=== PATIENT | male | born 1945 | race Hispanic/Latino ===

== ENCOUNTER 2018-05-27 12:33 | Outpatient (CLI) | payer MEDICARE, BC ==
[2018-05-27 13:27] LABS: #Basophils 0.1 thou/uL (0.0-0.2); #Eosinphils 0.1 thou/uL (0.0-0.7); #Lymphocytes 1.8 thou/uL (1.20-3.40); #Monocytes 0.7 thou/uL (0.11-0.59); #Neutrophils 7.2 thou/uL (1.40-6.50); %Basophils 0.8 % (0.0-1.0); %Eosinophils 0.8 % (0.0-10.0); %Lymphocytes 18.3 % (21.0-51.0); %Monocytes 6.7 % (0.0-10.0); %Neutrophils 73.5 % (42.0-75.0); Hemoglobin 13.5 g/dL (14.0-18.0); Mean Corpuscular HGB CONC 32.2 g/dL (32.0-36.0); Mean Platelet Volume 8.5 fL (7.4-10.4); Platelet Count 217 thou/uL (130-400); RBC Distribution Width 12.9 % (11.5-14.5); White Blood Cell (WBC) Count 9.8 thou/uL (4.8-10.8)
[2018-05-27 13:52] LABS: ALT (SGPT) 30 U/L (8-55); AST (SGOT) 20 U/L (5-34); Albumin 4.3 g/dL (3.4-4.8); Alkaline Phosphatase 77 U/L (40-150); Anion Gap 15 mmol/L (10-20); BUN (Urea Nitrogen) 23 mg/dL (8.4-25.7); Bilirubin, Total 0.5 mg/dL (0.2-1.2); Calc. Creatinine Clearance 0 mL/min (70-130); Calcium 9.3 mg/dL (7.8-10.44); Carbon Dioxide 24 mmol/L (23-31); Chloride 107 mmol/L (98-107); Estimated GFR-MDRD 55; Globulin 2.9 g/dL (2.4-3.5); Glucose 121 mg/dL (83-110); Potassium 4.7 mmol/L (3.5-5.1); Protein, Total 7.2 g/dL (5.8-8.1); Sodium 141 mmol/L (136-145)
== END 2018-05-27 12:34 | disposition home or self-care (01) ==
LOC: LABBT 12:33
PROVIDERS: ATTEND Internal Medicine Cardiovascular Disease
DX: Z01.812 Encounter for preprocedural laboratory examination (principal); I25.119 Atherosclerotic heart disease of native coronary artery with unspecified angina pectoris; I35.0 Nonrheumatic aortic (valve) stenosis
CPT/HCPCS: 80053; 85025

== ENCOUNTER 2018-06-02 06:02 | Day surgery (SDC) | payer MEDICARE, BC ==
[2018-05-27 13:19] VITALS: BMI 24.7
[2018-06-02] MEDS ORDERED: Fentanyl 100 MCG/2 ML VIAL ONE (09:12)
[2018-06-02] MEDS ORDERED: Midazolam HCl 2 mg/2 ml Vial ONE (09:13)
[2018-06-02] MEDS ORDERED: Iopamidol 370 76% 100 ML VIAL ONE (13:22)
--- NOTE | 2018-06-02 21:29 | CON ---
DATE OF CONSULTATION: 06/02/2018 HISTORY OF PRESENT ILLNESS: Mr. Guajardo is a very pleasant 72-year-old gentleman, who is referred by Dr. Nanci Massey. He has had over the last year progressive chest tightness and some pain with shortness of breath with activity. He underwent an echocardiographic evaluation in January. Aortic valve was read as [id number] with a peak gradient of 41 and a mean gradient of 26. Ejection fraction was preserved at that time. He was brought in today for cardiac catheterization. Catheterization revealed severe proximal LAD stenosis and OM1 stenosis. I have been asked to see him and discuss aortic valve replacement and coronary artery bypass grafting. Targets include LAD and OM. PAST MEDICAL HISTORY: 1. Hypertension. 2. Coronary artery disease. 3. Hypercholesterolemia. 4. Aortic stenosis. PAST SURGICAL HISTORY: 1. Ankle surgery. 2. Knee surgery. SOCIAL HISTORY: He has remote history of tobacco abuse. CURRENT MEDICATIONS: 1. Aspirin 81 mg daily. 2. Zetia 10 mg daily. 3. Isosorbide 30 mg daily. 4. Atenolol 50 mg b.i.d. 5. Levothyroxine 50 mcg daily. 6. Allopurinol 100 mg b.i.d. 7. Atorvastatin 40 mg daily. 8. Amlodipine 5 mg daily. ALLERGIES: NONE. PHYSICAL EXAMINATION: GENERAL: This is a well-developed, well-nourished, very pleasant gentleman, resting in the recovery area without complaint. VITAL SIGNS: Heart rate is 58, blood pressure is 158/82, weight is 176 pounds. HEENT: Sclerae nonicteric. Pupils were equal and round bilaterally. NECK: Supple. CHEST: Clear. HEART: Rhythm is regular with systolic murmur. ABDOMEN: Soft and nontender. EXTREMITIES: No edema. VASCULAR: Palpable carotid, radial, femoral, and dorsalis pedis pulses bilaterally. No venous distention. VENOUS: There are no venous varicosities or stasis changes. ASSESSMENT AND PLAN: Aortic stenosis with coronary artery disease. I have discussed aortic valve replacement with bioprosthetic valve and coronary artery bypass grafting utilizing left internal mammary artery to LAD and saphenous vein graft to OM. He is agreeable to proceed next week and signed. Job ID: [id number]
--- NOTE | 2018-06-03 06:09 | DIS ---
DATE OF ADMISSION: 06/02/2018 DATE OF DISCHARGE: 06/02/2018 Mr. Guajardo underwent cardiac catheterizations and has severe 2-vessel coronary artery disease. He has known aortic stenosis. The patient will be discharged to come back to see Dr. Case as an outpatient for surgery, as a precaution we want to repeat the echo. This was done in January to make sure there has been no change in left ventricular function or any other valves. Job ID: [id number]
== END 2018-06-02 16:00 | disposition home or self-care (01) ==
LOC: CCL 06:02
PROVIDERS: ATTEND Internal Medicine Cardiovascular Disease
PROC: 4A023N7 Measurement of Cardiac Sampling and Pressure, Left Heart, Percutaneous Approach (ICD-10-PCS; principal; 2018-06-02)
PROC: B2111ZZ Fluoroscopy of Multiple Coronary Arteries using Low Osmolar Contrast (ICD-10-PCS; 2018-06-02)
DX: I25.119 Atherosclerotic heart disease of native coronary artery with unspecified angina pectoris (principal); I35.0 Nonrheumatic aortic (valve) stenosis; E78.00 Pure hypercholesterolemia, unspecified; E78.2 Mixed hyperlipidemia; I12.9 Hypertensive chronic kidney disease with stage 1 through stage 4 chronic kidney disease, or unspecified chronic kidney disease; N18.2 Chronic kidney disease, stage 2 (mild); Z87.891 Personal history of nicotine dependence; Z79.82 Long term (current) use of aspirin; Z79.899 Other long term (current) drug therapy
CPT/HCPCS: 76942; 93454; 99152; 99153; C1769; J1644; J2250; J3010

== ENCOUNTER 2018-06-08 06:11 | Outpatient (CLI) | payer MEDICARE, BC | END 2018-06-08 06:12 | disposition home or self-care (01) | LOC: LABBT 06:11 | PROVIDERS: ATTEND Thoracic Surgery (Cardiothoracic Vascular Surgery) | DX: Z01.818 Encounter for other preprocedural examination (principal); I25.10 Atherosclerotic heart disease of native coronary artery without angina pectoris; I35.0 Nonrheumatic aortic (valve) stenosis | CPT/HCPCS: 86850; 86900; 86901; 93005; 93010 ==

== ENCOUNTER 2018-06-08 09:15 | Inpatient (IN) | payer MEDICARE, BC ==
[2018-06-09] MEDS ORDERED: Bupivacaine HCl 0.5%/Epinephrine 1:200,000/PF 30 ml Vial ONE (06:30)
[2018-06-09] MEDS ORDERED: Albumin 5% 500 ML ONE (06:30)
[2018-06-09] MEDS ORDERED: Dexamethasone 4 mg/ml Vial ONE (06:30)
[2018-06-09] MEDS ORDERED: Midazolam HCl 5 mg/5 ml Vial ONE (06:35)
[2018-06-09] MEDS ORDERED: Fentanyl 100 MCG/2 ML VIAL ONE (06:35)
[2018-06-09] MEDS ORDERED: Midazolam HCl 2 mg/2 ml Vial ONE (06:35)
[2018-06-09] MEDS ORDERED: Vecuronium 10 MG VIAL ONE ×2 (06:35→19:15)
[2018-06-09] MEDS ORDERED: Dexmedetomidine 200 MCG/2 ML VIAL ONE (06:35)
[2018-06-09] MEDS ORDERED: Heparin 10,000 UNITS/1 ML VIAL 30,000 UNITS in Sodium Chloride 0.9% 1,000 ML IVPB SCH (06:45)
[2018-06-09] MEDS ORDERED: CEFAZOLIN 2 GM/50 ML BAG ONE (06:45)
[2018-06-09] MEDS ORDERED: Norepinephrine 8 MG/0.9% NS 250 ML IVPB PRN (11:57)
[2018-06-09] MEDS ORDERED: D5 1/2 NS w/20 mEq KCL 1,000 ML IV SCH (11:57)
[2018-06-09] MEDS ORDERED: hydrALAZINE 20 MG/ML VIAL SLOW IVP PRN (11:57)
[2018-06-09] MEDS ORDERED: Ondansetron PF 4 MG/2 ML Vial IVP PRN (11:57)
[2018-06-09] MEDS ORDERED: Guaifenesin DM 100-10/5 ML UDCUP PO PRN (11:57)
[2018-06-09] MEDS ORDERED: Mag-Al 1200 mg/1200 mg/30 ML UDCUP PO PRN (11:57)
[2018-06-09] MEDS ORDERED: Promethazine HCl 25 MG/ML VIAL IM PRN (11:57)
[2018-06-09] MEDS ORDERED: Fentanyl 100 MCG/2 ML VIAL SLOW IVP PRN ×2 (11:57)
[2018-06-09] MEDS ORDERED: Hetastarch 6% 500 ML 500 ML IVPB PRN (11:57)
[2018-06-09] MEDS ORDERED: Nitroglycerin 50 MG/250 ML BOT 250 ML IVPB PRN (11:57)
[2018-06-09] MEDS ORDERED: Morphine 4 MG/ML VIAL SLOW IVP PRN (11:57)
[2018-06-09] MEDS ORDERED: Acetaminophen 325 MG TAB PO PRN (11:57)
[2018-06-09] MEDS ORDERED: HYDROcodone/Acetaminophen 5/325 mg Tablet PO PRN (11:57)
[2018-06-09] MEDS ORDERED: Bisacodyl 10 MG SUPP PR PRN (11:57)
[2018-06-09] MEDS ORDERED: Potassium Chloride 20 MEQ/100 ML PREMIX BAG IVPB PRN (11:57)
[2018-06-09] MEDS ORDERED: Bisacodyl 5 MG TAB PO PRN (11:57)
[2018-06-09] MEDS ORDERED: CEFAZOLIN/Water 2 GM/20 ML SYRINGE SLOW IVP SCH (11:57)
[2018-06-09 11:59] LABS: Actual Bicarbonate (HCO3a) 23.9 mEq/L (22-28); Base Excess (BEa) -3.3 mEq/L (-2.0 to +3.0); CO2 Tension 52.3 mmHg (35.0-45.0); Calcium, Ionized 1.25 mmol/L (1.12-1.30); Carboxyhemoglobin (COHb) 0.7 gm% (0.0-3.0); Hemoglobin (Hb) 12.3 g/dL (14.0-18.0); O2 Tension (PaO2) 194.5 mmHg (> 70.0); Potassium - ABG Lab 4.67 mmol/L (3.70-5.30); pH, Arterial 7.28 (7.35-7.45)
[2018-06-09 12:00] LABS: ALV-art Gradient 96.625 (0-20); Puncture Site ALINE
[2018-06-09] MEDS ORDERED: Ketorolac Tromethamine 30 MG/ML VIAL IVP SCH (12:00)
[2018-06-09] MEDS ORDERED: Dextrose 5% in Water 1,000 ML IV PRN (12:17)
[2018-06-09] MEDS ORDERED: Dextrose 50% Abboject 50 ML SYRINGE SLOW IVP PRN (12:17)
[2018-06-09 12:20] LABS: INR-International Normal Ratio 1.6; Prothrombin Time 19.1 SEC (12.0-14.7)
[2018-06-09] MEDS ORDERED: Magnesium 2 GM/50 ML 2 GM in Premix Bag 1 BAG IVPB SCH (12:30)
[2018-06-09 12:35] LABS: Anion Gap 14 mmol/L (10-20); BUN (Urea Nitrogen) 25 mg/dL (8.4-25.7); Calc. Creatinine Clearance 105 mL/min (70-130); Calcium 8.6 mg/dL (7.8-10.44); Carbon Dioxide 17 mmol/L (23-31); Chloride 113 mmol/L (98-107); Estimated GFR-MDRD 51; Glucose 126 mg/dL (83-110); Potassium 4.8 mmol/L (3.5-5.1); Sodium 139 mmol/L (136-145)
[2018-06-09] MEDS: Insulin Regular 300 UNITS/3 ML VIAL SC PRN ×3 (12:43→20:22)
[2018-06-09 12:50] LABS: Band 22 % (5-11); Eosinophils 1 % (0-10); Hemoglobin 11.6 g/dL (14.0-18.0); Lymphocytes 1 % (21-51); MDiff Complete? YES; Mean Corpuscular HGB CONC 32.1 g/dL (32.0-36.0); Mean Corpuscular Hemoglobin 29.9 pg (27.0-31.0); Mean Corpuscular Volume 93.2 fL (78.0-98.0); Mean Platelet Volume 8.4 fL (7.4-10.4); Monocytes 2 % (0-10); Neutrophil 74 % (42-75); PLT Morphology Comment Appears Decreased; Platelet Count 118 thou/uL (130-400); RBC Distribution Width 12.6 % (11.5-14.5); Red Blood Cell (RBC) Count 3.89 mill/uL (4.70-6.10)
--- NOTE | 2018-06-09 13:09 | RAD ---
FRONTAL RADIOGRAPH CHEST: Date: 06-09-18 Comparison: None. History: Evaluate chest following open heart surgery. FINDINGS: Midline sternotomy wires are present as is a mechanical valve overlying the midline mediastinum. Post -surgical drainage catheter overlies the left hemithorax. There is a right subclavian vascular catheter. Of note, the distal tip of this catheter is quite infe riorly located, overlying the expected location of the inferior vena cava. This may extend off the in ferior aspect of this film. IMPRESSION: Post-operative changes as detailed above. No pneumothorax. Of note, right subclavian vascular cathete r present extending into the region of the inferior vena cava. POS: [facility]
[2018-06-09 13:42] LABS: Actual Bicarbonate (HCO3a) 22.6 mEq/L (22-28); Analyzer IN Cardio OR; Base Excess (BEa) -2.3 mEq/L (-2.0 to +3.0); CO2 Tension 39.6 mmHg (35.0-45.0); Carboxyhemoglobin (COHb) 0.3 gm% (0.0-3.0); Hemoglobin (Hb) 11.1 g/dL (14.0-18.0); Potassium - ABG Lab 5.18 mmol/L (3.70-5.30); pH, Arterial 7.38 (7.35-7.45)
[2018-06-09 13:43] LABS: Actual Bicarbonate (HCO3a) 28.7 mEq/L (22-28); Analyzer IN Cardio OR; Base Excess (BEa) 0.7 mEq/L (-2.0 to +3.0); Calcium, Ionized 1.03 mmol/L (1.12-1.30); Carboxyhemoglobin (COHb) 0.2 gm% (0.0-3.0); Hemoglobin (Hb) 9.2 g/dL (14.0-18.0); O2 Tension (PaO2) 457.3 mmHg (> 70.0); Potassium - ABG Lab 6.27 mmol/L (3.70-5.30)
[2018-06-09 13:43] LABS: Actual Bicarbonate (HCO3a) 23.6 mEq/L (22-28); Analyzer IN Cardio OR; Base Excess (BEa) -1.6 mEq/L (-2.0 to +3.0); Calcium, Ionized 1.56 mmol/L (1.12-1.30); Carboxyhemoglobin (COHb) 0.4 gm% (0.0-3.0); Hemoglobin (Hb) 9.4 g/dL (14.0-18.0); O2 Tension (PaO2) 451.9 mmHg (> 70.0); Potassium - ABG Lab 5.98 mmol/L (3.70-5.30); pH, Arterial 7.37 (7.35-7.45)
[2018-06-09 13:44] LABS: Actual Bicarbonate (HCO3a) 18.7 mEq/L (22-28); Analyzer IN Cardio OR; Base Excess (BEa) -5.8 mEq/L (-2.0 to +3.0); CO2 Tension 33.7 mmHg (35.0-45.0); Calcium, Ionized 1.17 mmol/L (1.12-1.30); Carboxyhemoglobin (COHb) 0.3 gm% (0.0-3.0); Hemoglobin (Hb) 12.8 g/dL (14.0-18.0); O2 Tension (PaO2) 279.8 mmHg (> 70.0); Potassium - ABG Lab 4.62 mmol/L (3.70-5.30); pH, Arterial 7.36 (7.35-7.45)
[2018-06-09 13:44] LABS: Actual Bicarbonate (HCO3a) 22.7 mEq/L (22-28); Analyzer IN Cardio OR; Base Excess (BEa) -4.2 mEq/L (-2.0 to +3.0); CO2 Tension 50.8 mmHg (35.0-45.0); Calcium, Ionized 1.01 mmol/L (1.12-1.30); Carboxyhemoglobin (COHb) 0.1 gm% (0.0-3.0); Hemoglobin (Hb) 8.7 g/dL (14.0-18.0); Potassium - ABG Lab 5.82 mmol/L (3.70-5.30); pH, Arterial 7.27 (7.35-7.45)
[2018-06-09 13:45] LABS: Actual Bicarbonate (HCO3a) 17.9 mEq/L (22-28); Analyzer IN Cardio OR; Base Excess (BEa) -5.2 mEq/L (-2.0 to +3.0); Calcium, Ionized 1.17 mmol/L (1.12-1.30); Carboxyhemoglobin (COHb) 0.9 gm% (0.0-3.0); O2 Tension (PaO2) 335.3 mmHg (> 70.0); Potassium - ABG Lab 4.41 mmol/L (3.70-5.30); pH, Arterial 7.42 (7.35-7.45)
[2018-06-09 13:46] LABS: O2 Tension (PaO2) 554.5 mmHg (> 70.0); Puncture Site ALINE
[2018-06-09 13:47] LABS: Puncture Site ALINE
[2018-06-09 13:48] LABS: CO2 Tension 66.4 mmHg (35.0-45.0); Puncture Site ALINE; pH, Arterial 7.25 (7.35-7.45)
[2018-06-09 13:49] LABS: O2 Tension (PaO2) 539.8 mmHg (> 70.0); Puncture Site ALINE
[2018-06-09 13:49] LABS: Puncture Site ALINE
[2018-06-09 13:50] LABS: Puncture Site ALINE
[2018-06-09] MEDS: CEFAZOLIN 2 GM/50 ML-DEXTROSE 2 GM in Premix Bag 1 BAG IVPB SCH ×2 (14:50→23:00)
[2018-06-09] MEDS: Ketorolac Tromethamine 30 MG/ML VIAL IVP SCH ×2 (15:36→20:18)
[2018-06-09 17:37] LABS: Hemoglobin 10.9 g/dL (14.0-18.0)
[2018-06-09 17:52] LABS: Potassium 4.9 mmol/L (3.5-5.1)
[2018-06-09] MEDS ORDERED: Protamine Sulfate 250 MG/25 ML VIAL ONE (19:15)
[2018-06-09] MEDS ORDERED: Esmolol 100 MG/10 ML VIAL ONE (19:15)
[2018-06-09] MEDS ORDERED: ePHEDrine/0.9% NaCl/PF SYRINGE 50 mg/10 ml ONE (19:15)
[2018-06-09] MEDS ORDERED: Ondansetron PF 4 MG/2 ML Vial ONE (19:15)
[2018-06-09] MEDS ORDERED: Thrombin 5000 UNITS/5 ML VIAL ONE (19:15)
[2018-06-09] MEDS ORDERED: Aminocaproic Acid 5 GM/20 ML VIAL ONE (19:15)
[2018-06-09] MEDS ORDERED: Albumin 25% 25 GM/100 ML BOT ONE (19:15)
[2018-06-09] MEDS ORDERED: Magnesium 5 GM/10 ML VIAL ONE (19:15)
[2018-06-09] MEDS ORDERED: Lidocaine 1% PF 5 ML VIAL ONE (19:15)
[2018-06-09] MEDS ORDERED: Papaverine 60 MG/2 ML VIAL ONE (19:15)
[2018-06-09] MEDS ORDERED: Sterile Water 10 ML VIAL ONE (19:15)
[2018-06-09] MEDS ORDERED: Nitroglycerin 50 MG/250 ML BOT ONE (19:15)
[2018-06-09] MEDS ORDERED: Heparin 30,000 units/30 ml VIAL ONE (19:15)
[2018-06-09] MEDS ORDERED: Calcium Chloride 1 GM/10 ML Abboject SYRINGE ONE (19:15)
[2018-06-09] MEDS ORDERED: Glycopyrrolate 0.2 MG/ML 5 ML SYRINGE ONE (19:15)
[2018-06-09] MEDS ORDERED: Lidocaine 2% PF 100 mg/5 ml Syringe ONE (19:15)
[2018-06-09] MEDS ORDERED: Ketorolac Tromethamine 30 MG/ML VIAL ONE (19:15)
[2018-06-09] MEDS ORDERED: PHENYLEPHRINE-NS 100 MCG/ML 10 ML SYRINGE ONE (19:15)
[2018-06-09] MEDS ORDERED: Mannitol 12.5 GM/50 ML ONE (19:15)
[2018-06-09] MEDS ORDERED: Potassium Chloride 60 MEQ/30 ML VIAL ONE (19:15)
[2018-06-09] MEDS ORDERED: Sodium Bicarb 50 MEQ/50 ML VIAL ONE (19:15)
[2018-06-09] MEDS ORDERED: Cardioplegic Soln 1,000 ML BAG ONE (19:15)
[2018-06-09] MEDS ORDERED: Heparin 5,000 UNITS/ML VIAL ONE (19:15)
--- NOTE | 2018-06-09 19:15 | OP ---
DATE OF PROCEDURE: 06/09/2018 PREOPERATIVE DIAGNOSES: Coronary artery disease/aortic stenosis/hypertension/hyperlipidemia. POSTOPERATIVE DIAGNOSES: Coronary artery disease/aortic stenosis/hypertension/hyperlipidemia. PROCEDURES: 1. Aortic valve replacement with a #23 Magna bioprosthetic valve. 2. Coronary artery bypass grafting x2, left internal mammary artery to 1.5 mm left anterior descending artery, good conduit and target. 3. Reverse saphenous vein to 2.5 mm obtuse marginal, good conduit and target. CO-SURGEON: Dr. Jamison Woodson. ANESTHESIA: General endotracheal. ANESTHESIOLOGIST: Dr. Chantel Maravilla. PUMP TIME: 95 minutes. CROSS-CLAMP TIME: 75 minutes. LOW CORE TEMPERATURE: 33 degrees Celsius. MEDICAL SECRETARY TEACHER: Nicholas Kinsey. DRAINS: 24-English chest tubes x2. DRIPS: None. TRANSFUSIONS: None. DESCRIPTION OF PROCEDURE: After proper consent was obtained, the patient was brought to the operating room, placed supine on the operative table. Appropriate central line was placed, and general endotracheal anesthesia induced. Chest and legs were prepped and draped in usual sterile fashion. Greater saphenous vein was harvested through 2 skip incisions in the left thigh. Wounds were irrigated and closed in layers. Initial monitors were performed. Left internal mammary artery was harvested as a pedicle graft. The patient was systemically heparinized. Distal pedicles were divided, infused with papaverine. Thymic fat and pericardium were divided with electrocautery. Pericardial stay sutures were placed. The aortic and atrial cannulation was performed. After adequate heparinization, retrograde prime was performed. The patient was placed on cardiopulmonary bypass. Distal targets were marked. Aortic cross-clamp was applied, and antegrade sanguineous cardioplegic arrest was obtained. 1 L of antegrade cold cardioplegia was given. Topical cold solution was used. Reverse saphenous vein was anastomosed to the OM in end-to-side fashion with running 7-0 Prolene suture. Anastomosis was tested and it was hemostatic. Mammary artery was brought to within the pericardium and anastomosed to the LAD in end-to-side fashion with 7-0 Prolene suture. Anastomosis was tested and it was hemostatic. Mammary was re-clamped. 300 mL of antegrade [place] cardioplegia was given. A sump drain was placed in the right superior pulmonary vein. Carbon dioxide was infused in the pericardial well. A transverse Hockey stick aortotomy was performed. The valve was inspected with 3 leaflet valve with calcified hinge points. The valve was debrided. 2-0 pledgeted Ethibond sutures were placed in the annulus. The valve measured as a 23. A 23 Magna aortic bioprosthesis was then washed. The sutures were passed through the sewing ring of the valve. The valve was seated nicely. Valve was secured with core knots. The aortotomy was closed in a two layer running fashion with pledget 4-0 Prolene suture. The BioGlue was placed in the suture line. The proximal anastomosis was then performed between saphenous vein and aorta with running 6-0 Prolene suture. De-airing maneuvers were performed. The patient was placed in Trendelenburg position, and the cross-clamp was removed. Ventricular pacing wires were placed. 24-English chest tubes x2 were placed in the mediastinum. After resumption of sinus rhythm, good hemodynamics, temperature greater than 36.5, bypass was discontinued. Transfusion was given. Protamine was administered. Decannulation was performed. Pursestring suture was secured. Two sutures were placed in the proximal for hemostasis. BioGlue was placed in the proximal and the aortic cannulation site. After adequate hemostasis had been obtained, sternum was treated with vancomycin paste. Sternum was closed with #7 wire. Sternum was treated with platelet rich plasma. Wires were twisted. Pericostal space in the rectus sheath was infiltrated with 0.5% Marcaine with epinephrine mixed with 4 mg of Decadron. The wounds were then treated with platelet poor plasma and closed in multiple layers. Needle, sponge, and instruments counts were all reported as correct at the end of the procedure. The patient was awakened, extubated, and transferred to the intensive care unit in stable condition. Job ID: [id number]
[2018-06-09] MEDS: Vancomycin HCl 1.5 GM in Sodium Chloride 0.9% 250 ML 300 ML IVPB SCH (20:21)
[2018-06-09] MEDS ORDERED: Famotidine/PF 20 mg/2ml Vial SLOW IVP SCH (21:00)
[2018-06-10] MEDS: Ketorolac Tromethamine 30 MG/ML VIAL IVP SCH ×4 (02:00→20:07)
[2018-06-10 03:56] LABS: #Lymphocytes 0.7 thou/uL (1.20-3.40); #Monocytes 1.1 thou/uL (0.11-0.59); #Neutrophils 14.6 thou/uL (1.40-6.50); %Eosinophils 0.1 % (0.0-10.0); %Lymphocytes 4.3 % (21.0-51.0); %Monocytes 6.8 % (0.0-10.0); %Neutrophils 88.9 % (42.0-75.0); Hemoglobin 10.6 g/dL (14.0-18.0); Mean Corpuscular HGB CONC 32.4 g/dL (32.0-36.0); Mean Corpuscular Hemoglobin 30.5 pg (27.0-31.0); Mean Platelet Volume 8.7 fL (7.4-10.4); Platelet Count 111 thou/uL (130-400); RBC Distribution Width 12.7 % (11.5-14.5); Red Blood Cell (RBC) Count 3.49 mill/uL (4.70-6.10); White Blood Cell (WBC) Count 16.4 thou/uL (4.8-10.8)
[2018-06-10 04:10] LABS: Anion Gap 14 mmol/L (10-20); BUN (Urea Nitrogen) 31 mg/dL (8.4-25.7); Calc. Creatinine Clearance 86 mL/min (70-130); Calcium 8.6 mg/dL (7.8-10.44); Carbon Dioxide 20 mmol/L (23-31); Chloride 112 mmol/L (98-107); Estimated GFR-MDRD 41; Glucose 127 mg/dL (83-110); Potassium 4.9 mmol/L (3.5-5.1); Sodium 141 mmol/L (136-145)
[2018-06-10] MEDS ORDERED: Nitroglycerin 0.4 MG TAB (25 Tab Bottle) SL PRN (07:24)
[2018-06-10] MEDS ORDERED: diphenhydrAMINE 25 MG CAP PO PRN (07:24)
[2018-06-10] MEDS ORDERED: Zolpidem Tartrate 5 MG TAB PO PRN (07:24)
[2018-06-10] MEDS ORDERED: Milk Of Magnesia 30 ML UDCUP PO PRN (07:24)
[2018-06-10] MEDS ORDERED: Bisacodyl 10 MG SUPP PR PRN (07:24)
[2018-06-10] MEDS ORDERED: Mag-Al 1200 mg/1200 mg/30 ML UDCUP PO PRN (07:24)
[2018-06-10] MEDS ORDERED: Mineral Oil ENEMA PR PRN (07:24)
[2018-06-10] MEDS ORDERED: Guaifenesin DM 100-10/5 ML UDCUP PO PRN (07:24)
[2018-06-10] MEDS ORDERED: Artificial Tears 18 DROP/0.9 ML EA EYE PRN (07:24)
[2018-06-10] MEDS ORDERED: Bisacodyl 5 MG TAB PO PRN (07:24)
[2018-06-10] MEDS: CEFAZOLIN 2 GM/50 ML-DEXTROSE 2 GM in Premix Bag 1 BAG IVPB SCH (07:53)
--- NOTE | 2018-06-10 08:11 | RAD ---
ONE VIEW CHEST: COMPARISON: 06/09/2018. HISTORY: Status post open heart surgery. FINDINGS: There are sternotomy wires. Right-sided subclavian central venous catheter, mediastinal drainage cat heter, and left-sided chest tube. There is subsegmental atelectasis in the left lung base. No sera s or consolidation. No pneumothorax. IMPRESSION: Findings compatible with recent open heart surgery. POS: [facility]
[2018-06-10] MEDS: Vancomycin HCl 1.5 GM in Sodium Chloride 0.9% 250 ML 300 ML IVPB SCH (08:15)
[2018-06-10] MEDS: Famotidine 20 MG TAB PO SCH ×2 (08:16→20:09)
[2018-06-10] MEDS: Magnesium 2 GM/50 ML 2 GM in Premix Bag 1 BAG IVPB SCH (08:16)
[2018-06-10] MEDS: Furosemide 40 MG TAB PO SCH (08:16)
[2018-06-10] MEDS: Aspirin 325 mg Enteric Coated Tablet PO SCH (08:16)
[2018-06-10] MEDS ORDERED: Aspirin 325 MG TAB PO SCH (09:00)
[2018-06-10] MEDS: Atorvastatin Calcium 20 MG TAB PO SCH (20:08)
[2018-06-10] MEDS: HYDROcodone/Acetaminophen 5/325 mg Tablet PO PRN (22:59)
[2018-06-11] MEDS: Ketorolac Tromethamine 30 MG/ML VIAL IVP SCH ×4 (02:04→20:11)
[2018-06-11] MEDS: Magnesium 2 GM/50 ML 2 GM in Premix Bag 1 BAG IVPB SCH (09:28)
[2018-06-11] MEDS: Furosemide 40 MG TAB PO SCH (09:29)
[2018-06-11] MEDS: Famotidine 20 MG TAB PO SCH ×2 (09:29→20:13)
[2018-06-11] MEDS: Aspirin 325 mg Enteric Coated Tablet PO SCH (09:29)
[2018-06-11] MEDS: Atorvastatin Calcium 20 MG TAB PO SCH (20:13)
--- NOTE | 2018-06-11 21:34 | PDOC.CTH ---
Cardiology Progress Note - Subjective pt. seen and eval. doing well s/p AVR + CABG. No cardiac complaints. - Objective Vital Signs Temp Pulse Pulse BP BP Pulse Ox Pulse Ox 06/11/18 20:00 99.7 F H 93 L 06/11/18 16:00 97.9 F 06/11/18 13:29 83 93 126/58 L 103/55 L 100 06/11/18 13:00 98.0 F 06/11/18 09:36 80 79 122/66 112/58 L 100 Pulse Ox 06/11/18 20:00 06/11/18 16:00 06/11/18 13:29 95 06/11/18 13:00 06/11/18 09:36 92 L Weight 151 lb 14.376 oz 06/10/18 06/11/18 06/12/18 06:59 06:59 06:59 Intake Total 2640 1620 1000 Output Total 8610 351 1374 Balance 1164 710 -135 - Physical Examination General/Neuro: alert & oriented x3 Neck: no JVD present Lungs: CTA Heart: RRR Abdomen: soft - Telemetry Telemetry Rhythm: NSR - Labs Result Diagrams: 06/10/18 03:45 06/10/18 03:45 - Assessment/Plan 1. s/p AVR+CABG. Doing well. Continue present meds . 2. HTN. Resume or start betablockes, Nicola-I when BP and renal function stable. 3. Renal insufficiency.Stable.Follow as creat. has increased.
[2018-06-11] MEDS: HYDROcodone/Acetaminophen 5/325 mg Tablet PO PRN (22:16)
[2018-06-11 23:00] VITALS: BMI 23.2
[2018-06-12] MEDS: Ketorolac Tromethamine 30 MG/ML VIAL IVP SCH ×2 (02:45→09:32)
[2018-06-12 07:19] LABS: Anion Gap 13 mmol/L (10-20); BUN (Urea Nitrogen) 45 mg/dL (8.4-25.7); Calc. Creatinine Clearance 37 mL/min (70-130); Calcium 8.5 mg/dL (7.8-10.44); Carbon Dioxide 24 mmol/L (23-31); Chloride 106 mmol/L (98-107); Estimated GFR-MDRD 33; Glucose 98 mg/dL (83-110); Potassium 4.6 mmol/L (3.5-5.1); Sodium 138 mmol/L (136-145)
[2018-06-12 07:25] LABS: #Eosinphils 0.1 thou/uL (0.0-0.7); #Lymphocytes 1.7 thou/uL (1.20-3.40); #Monocytes 1.1 thou/uL (0.11-0.59); #Neutrophils 10.6 thou/uL (1.40-6.50); %Basophils 0.2 % (0.0-1.0); %Eosinophils 0.9 % (0.0-10.0); %Lymphocytes 12.4 % (21.0-51.0); %Monocytes 8.2 % (0.0-10.0); %Neutrophils 78.3 % (42.0-75.0); Hemoglobin 9.6 g/dL (14.0-18.0); Mean Corpuscular HGB CONC 32.7 g/dL (32.0-36.0); Mean Corpuscular Hemoglobin 30.7 pg (27.0-31.0); Mean Corpuscular Volume 93.9 fL (78.0-98.0); PLT Morphology Comment Appears Decreased; Platelet Count 82 thou/uL (130-400); RBC Distribution Width 12.7 % (11.5-14.5); RBC Morphology Normal; Red Blood Cell (RBC) Count 3.12 mill/uL (4.70-6.10); White Blood Cell (WBC) Count 13.6 thou/uL (4.8-10.8)
[2018-06-12] MEDS: Aspirin 325 mg Enteric Coated Tablet PO SCH (09:32)
[2018-06-12] MEDS: Famotidine 20 MG TAB PO SCH (09:32)
[2018-06-12] MEDS: Furosemide 40 MG TAB PO SCH (09:33)
--- NOTE | 2018-06-12 11:15 | PDOC.CTH ---
Cardiology Progress Note - Subjective The pt seen and examined. No overnight events. No cardiac complaints. - Objective Vital Signs Temp Pulse Pulse Pulse Resp BP BP 06/12/18 09:44 81 85 119/61 125/65 06/12/18 00:01 06/11/18 23:50 98.1 F 89 15 BP Pulse Ox Pulse Ox Pulse Ox 06/12/18 09:44 93 L 92 L 06/12/18 00:01 93 L 06/11/18 23:50 131/68 93 L Weight 176 lb 06/11/18 06/12/18 06/13/18 06:59 06:59 06:59 Intake Total 1620 1100 Output Total 910 1335 Balance 710 -235 - Physical Examination General/Neuro: alert & oriented x3 Neck: no JVD present Lungs: CTA Heart: RRR Abdomen: soft Extremities: other: (No edema; MSI NIA) - Telemetry Telemetry Rhythm: SR - Labs Result Diagrams: 06/12/18 06:10 06/12/18 06:10 - Assessment/Plan 1. S/p AVR+CABG x2 with ROMERO-LAD and RSVG-OM on 06/09/2018. Doing well. Continue present meds. Will start Bblocker when his VS is more stable. 2. HTN. Stable; Will start Bblocker/DANIELLE/ARB when his VS is more stable. 3. Renal insufficiency. Stable. Follow as creat. has increased. MAR reviewed * Dr Massey's pt Pt. seen and eval. by me. I agree with the A/P by the BASIC SCIENCES PROFESSOR. RRR. Left chest decr. breath sounds.Pt. ambulating and doing well. Review of Systems - Review of Systems Constitutional: reports: no symptoms reported EENTM: reports: no symptoms reported Respiratory: reports: no symptoms reported Cardiac (ROS): reports: no symptoms reported ABD/GI: reports: no symptoms reported : reports: no symptoms reported Musculoskeletal: reports: no symptoms reported Skin: reports: no symptoms reported
[2018-06-12] MEDS: Atorvastatin Calcium 20 MG TAB PO SCH (21:42)
[2018-06-13 06:46] LABS: #Eosinphils 0.1 thou/uL (0.0-0.7); #Lymphocytes 1.4 thou/uL (1.20-3.40); %Basophils 0.2 % (0.0-1.0); %Eosinophils 1.2 % (0.0-10.0); %Monocytes 8.9 % (0.0-10.0); %Neutrophils 77.7 % (42.0-75.0); Anion Gap 12 mmol/L (10-20); BUN (Urea Nitrogen) 40 mg/dL (8.4-25.7); Calc. Creatinine Clearance 43 mL/min (70-130); Calcium 8.6 mg/dL (7.8-10.44); Carbon Dioxide 25 mmol/L (23-31); Chloride 108 mmol/L (98-107); Estimated GFR-MDRD 39; Glucose 110 mg/dL (83-110); Mean Corpuscular HGB CONC 33.1 g/dL (32.0-36.0); Mean Corpuscular Hemoglobin 30.8 pg (27.0-31.0); Mean Corpuscular Volume 93.1 fL (78.0-98.0); Mean Platelet Volume 8.7 fL (7.4-10.4); Platelet Count 93 thou/uL (130-400); Potassium 5.2 mmol/L (3.5-5.1); RBC Distribution Width 12.5 % (11.5-14.5); Red Blood Cell (RBC) Count 2.93 mill/uL (4.70-6.10); Sodium 140 mmol/L (136-145); White Blood Cell (WBC) Count 11.5 thou/uL (4.8-10.8)
--- NOTE | 2018-06-13 07:57 | PDOC.CTH ---
Cardiology Progress Note - Subjective The pt seen and examined. No overnight events. No cardiac complaints. - Objective Vital Signs Temp Pulse Resp BP Pulse Ox 06/12/18 20:00 99.7 F H 99 16 127/62 94 L Weight 170 lb 9 oz 06/12/18 06/13/18 06/14/18 06:59 06:59 06:59 Intake Total 1100 720 Output Total 1335 Balance -235 720 - Physical Examination General/Neuro: alert & oriented x3 Neck: no JVD present Lungs: CTA Heart: RRR Abdomen: soft Extremities: other: (No edema; MSI NIA) - Telemetry Telemetry Rhythm: SR - Labs Result Diagrams: 06/13/18 05:52 06/13/18 05:52 - Assessment/Plan 1. S/p AVR+CABG x2 with ROMERO-LAD and RSVG-OM on 06/09/2018. Doing well. Continue present meds. Will start Coreg 3.125mg BID from this AM. 2. HTN. Stable; Will start Coreg 3.125mg BID from this AM. 3. Renal insufficiency. improving. 4. Hyperkelemia - On Lasix. encourage to take extra fluid and exercise. MAR reviewed * Dr Massey's pt Pt. seen and eval. by me. I agree with the A/P by the FINISHER CARD TENDER. Chest : decreased left base., RRR. generalized weakness. Review of Systems - Review of Systems Constitutional: reports: no symptoms reported EENTM: reports: no symptoms reported Respiratory: reports: no symptoms reported Cardiac (ROS): reports: no symptoms reported ABD/GI: reports: no symptoms reported : reports: no symptoms reported Musculoskeletal: reports: no symptoms reported
[2018-06-13] MEDS: Furosemide 40 MG TAB PO SCH (08:17)
[2018-06-13] MEDS: Aspirin 325 mg Enteric Coated Tablet PO SCH (08:17)
[2018-06-13] MEDS ORDERED: Carvedilol 3.125 MG TAB PO SCH (09:00)
--- NOTE | 2018-06-13 14:45 | PQF ---
CLINICAL DOCUMENTATION IMPROVEMENT CLARIFICATION FORM: ICD-10 Updated PLEASE DO AN ADDENDUM TO THE PROGRESS NOTE WITH ANY DOCUMENTATION UPDATES OR ADDITIONS AND CARRY THROUGH TO DC SUMMARY. THANK YOU. DATE: 06/13/2018 ATTN: Dr. Ravi Case Please exercise your independent, professional judgment in responding to the clarification form. Clinical indicators are provided on the bottom of this form for your review Please check appropriate box(s): [ ] Acute Renal Failure (ARF) / Acute Kidney Injury (LAVELL) [ x ] Acute on Chronic Renal Failure please specify Stage of CKD ___3 (see below) [ ] CKD without ARF/LAVELL please specify Stage of CKD [ ] Other Etiology or underlying conditions related to the diagnosis of ARF/ LAVELL: [ ] Other: [ ] Other diagnosis [ ] Unable to determine In addition, please specify: Present on Admission (POA): [ x ] Yes [ x ] No [ ] Unable to determine For continuity of documentation, please document condition throughout progress notes and discharge summary. Thank You. CLINICAL INDICATORS - SIGNS / SYMPTOMS / LABS 06/09/18 06/10/18 06/12/18 Labs: Creatinine 1.37 1.66 2.00 1.74 Estimated GFR 51 41 33 39 PN 06/11/18 (Salazar): Renal insufficiency. Stable. Follow as creat. has increased. PN 06/13 (Arata): Renal insufficiency. improving RISKS: 06/02 Manpreet: Cardiac Catheterization 06/02/18 revealed severe proximal LAD stenosis and OM1 stenosis. Hx HTN, CAD. . 06/09/18: Operative note: AVR. CABG x2. PN 06/12 (Sigtenhorst) Has long standing mild renal insufficiency w/ creat 1.3-1.4 as far back as 2013 TREATMENTS: PN 06/12 (Sigtenhorst) Will stop Lasix & Toradol, recheck BMP Order BMP: 06/12, 06/13 Order 06/13: Lasix 40 mg po daily National Kidney Foundation Guidelines for CKD Staging Stage I Kidney damage with normal or increased GFR GFR > 90 Stage II Kidney damage with mildly decreased GFR GFR 60-89 Stage III Kidney damage with moderately decreased GFR GFR 30-59 Stage IV Kidney damage with severely decreased GFR GFR 16-29 Stage V Kidney failure GFR <15 ESRD End Stage Renal Disease On dialysis Acute Renal Failure/Acute Kidney Failure defined as: Increases in SCr by (>) 0.3 mg/dl within 48 hours OR- Increases in SCr by (>) 1.5 times baseline, known or presumed to have occurred within the prior 7 days OR- Urine volume < 0.5 ml/kg/hour for 6 hours (KDIGO supplement 2012 for RIFLE/THA criteria) Thank you, Kasandra (This form is maintained as a part of the permanent medical record) 2014 [employer] All Rights Reserved Kasandra Dhaliwal RN, BSN [email or web address] Office: [phone] [facility] HOSPITALTorrey
[2018-06-13] MEDS: Carvedilol 3.125 MG TAB PO SCH (17:09)
[2018-06-13] MEDS: Atorvastatin Calcium 20 MG TAB PO SCH (21:01)
[2018-06-14 06:05] LABS: Anion Gap 13 mmol/L (10-20); BUN (Urea Nitrogen) 34 mg/dL (8.4-25.7); Calc. Creatinine Clearance 49 mL/min (70-130); Calcium 8.7 mg/dL (7.8-10.44); Carbon Dioxide 25 mmol/L (23-31); Chloride 105 mmol/L (98-107); Estimated GFR-MDRD 45; Glucose 108 mg/dL (83-110); Sodium 139 mmol/L (136-145)
--- NOTE | 2018-06-14 07:58 | RAD ---
FRONTAL RADIOGRAPH CHEST: Date: 06-14-18 Comparison: 06-10-18 History: Chest congestion following CABG. FINDINGS: There is no pneumothorax. Midline sternotomy wires are present. Stable right sided vascular catheter. Right lung appears clear. There is increased density within the medial left lung base, worsened since the 06-10-18 examination, s uggesting partial consolidation/collapse of the left lower lobe. Question small volume left pleural f luid. IMPRESSION: Worsening aeration within the left lung base suggests left lower lobe consolidation/collapse and/or s mall volume left pleural fluid. POS: H
[2018-06-14] MEDS: Aspirin 325 mg Enteric Coated Tablet PO SCH (08:43)
[2018-06-14] MEDS: Carvedilol 3.125 MG TAB PO SCH (08:43)
[2018-06-14] MEDS: Furosemide 40 MG TAB PO SCH (08:43)
--- NOTE | 2018-06-14 12:23 | PDOC.CTH ---
Cardiology Progress Note - Subjective The pt seen and examined. No overnight events. No cardiac complaints. He denied dizziness or weakness today. - Objective Vital Signs Temp Pulse Resp BP Pulse Ox 06/14/18 11:56 98.3 F 89 16 122/64 94 L 06/14/18 08:14 93 L 06/14/18 08:00 98.1 F 91 16 117/64 88 L 06/14/18 03:07 98.4 F 90 16 128/67 93 L Weight 176 lb 3.2 oz 06/13/18 06/14/18 06/15/18 06:59 06:59 06:59 Intake Total 720 525 Output Total 475 Balance 720 50 - Physical Examination General/Neuro: alert & oriented x3 Neck: no JVD present Lungs: CTA Heart: RRR Abdomen: soft Extremities: other: (No edema) - Telemetry Telemetry Rhythm: SR - Labs Result Diagrams: 06/13/18 05:52 06/14/18 05:30 - Assessment/Plan 1. S/p AVR+CABG x2 with ROMERO-LAD and RSVG-OM on 06/09/2018. Doing well. On Coreg 3.125mg BID, ASA 325mg qd, and Statin. 2. HTN. Stable; 3. Renal insufficiency - improving. 4. Hyperkelemia - improved. MAR reviewed * Dr Massey's pt Pt. seen and eval. by me. I agree with the A/P by the SUPERVISOR PUMPING STATION. Pt. with occasiomnal lightheadedness. Orthostatic. Review of Systems - Review of Systems Constitutional: reports: no symptoms reported EENTM: reports: no symptoms reported Respiratory: reports: no symptoms reported Cardiac (ROS): reports: no symptoms reported ABD/GI: reports: no symptoms reported : reports: no symptoms reported Musculoskeletal: reports: no symptoms reported Skin: reports: no symptoms reported
[2018-06-14] MEDS: Atorvastatin Calcium 20 MG TAB PO SCH (22:33)
[2018-06-15] MEDS: Aspirin 325 mg Enteric Coated Tablet PO SCH (10:36)
--- NOTE | 2018-06-15 13:08 | PDOC.CTH ---
Cardiology Progress Note - Subjective The pt seen and examined. No overnight events. He felt weak and his BP showed orthostatic hypotension, SBP from 79-131. He denied other cardiac complaints during walking with PT. - Objective Vital Signs Temp Pulse Resp BP Pulse Ox 06/15/18 12:02 98.4 F 93 16 107/61 92 L 06/15/18 07:50 98.5 F 85 20 132/66 92 L 06/15/18 03:30 98.6 F 89 18 122/60 95 06/15/18 01:55 95 Weight 167 lb 9.6 oz 06/14/18 06/15/18 06/16/18 06:59 06:59 06:59 Intake Total 525 Output Total 475 Balance 50 - Physical Examination General/Neuro: alert & oriented x3 Neck: no JVD present Lungs: CTA Heart: RRR Abdomen: soft Extremities: other: (No edema; MSI NIA) - Telemetry Telemetry Rhythm: SR 90s - Labs Result Diagrams: 06/13/18 05:52 06/14/18 05:30 - Assessment/Plan 1. S/p AVR+CABG x2 with ROMERO-LAD and RSVG-OM on 06/09/2018. Doing well. But hypotensive. Coreg 3.125mg BID and Lasix are on hold for hypotensive. Cont. ASA 325mg qd, and Statin. 2. HTN. Coreg is on hold for hypotensive. 3. Renal insufficiency - improving. 4. Hyperkelemia - improved. MAR reviewed * Dr Massey's pt * Orthostatic BP: 79/46 in standing, 93/54 in sitting, 131/62 in supine position after walking with PT today. Pt. seen and eval. by me. I agree with the A/P by the STREET LIGHT SERVICER SUPERVISOR. Will add fluids.Encourage po. Add compression hose if the BP does not improve. Doubt he will need Midodrine.
[2018-06-15] MEDS: Atorvastatin Calcium 20 MG TAB PO SCH (22:16)
[2018-06-16] MEDS: Aspirin 325 mg Enteric Coated Tablet PO SCH (07:53)
--- NOTE | 2018-06-16 11:38 | PDOC.CTH ---
Cardiology Progress Note - Subjective The pt seen and examined. No overnight events. No cardiac complaints. Encourage the pt to have more fluid. - Objective Vital Signs Temp Pulse Resp BP BP BP BP 06/16/18 07:53 06/16/18 07:18 98.2 F 99 16 81/52 L 86/53 L 121/68 06/16/18 04:00 95 18 133/67 Pulse Ox 06/16/18 07:53 93 L 06/16/18 07:18 93 L 06/16/18 04:00 95 Weight 171 lb 06/15/18 06/16/18 06/17/18 06:59 06:59 06:59 Output Total 425 375 Balance -425 -375 - Physical Examination General/Neuro: alert & oriented x3 Neck: no JVD present Lungs: CTA Abdomen: soft Extremities: other: (No edema) - Labs Result Diagrams: 06/13/18 05:52 06/14/18 05:30 - Assessment/Plan 1. S/p AVR+CABG x2 with ROMERO-LAD and RSVG-OM on 06/09/2018. Doing well. But hypotensive. Coreg 3.125mg BID and Lasix are on hold for hypotensive. Cont. ASA 325mg qd, and Statin. 2. HTN. Coreg is on hold for hypotensive. 3. Renal insufficiency - improving. 4. Hyperkelemia - improved. MAR reviewed * Dr Massey's pt * Orthostatic BP: 79/46 in standing, 93/54 in sitting, 131/62 in supine position after walking with PT today. Will add fluids.Encourage po. Add compression hose if the BP does not improve. Doubt he will need Midodrine. Review of Systems - Review of Systems Constitutional: reports: no symptoms reported EENTM: reports: no symptoms reported Respiratory: reports: no symptoms reported Cardiac (ROS): reports: no symptoms reported ABD/GI: reports: no symptoms reported : reports: no symptoms reported Musculoskeletal: reports: no symptoms reported
[2018-06-16 12:02] VITALS: TEMP 97.8
[2018-06-16 15:07] VITALS: BP 91/51
--- NOTE | 2018-06-16 19:04 | EKG ---
Test Reason : POST CABG Blood Pressure : / mmHG Vent. Rate : 074 BPM Atrial Rate : 074 BPM P-R Int : 176 ms QRS Dur : 096 ms QT Int : 442 ms P-R-T Axes : 054 -52 098 degrees QTc Int : 490 ms Normal sinus rhythm Left axis deviation Prolonged QT Abnormal ECG Confirmed by BRUCE GORDON ([id number]) on 06/16/2018 7:04:28 PM Referred By: aRudel SHIELDS Confirmed By:BRUCE GORDON
--- NOTE | 2018-06-17 04:12 | DIS ---
DATE OF ADMISSION: 06/09/2018 DATE OF DISCHARGE: 06/16/2018 DIAGNOSES: 1. Aortic stenosis. 2. Coronary artery disease. PROCEDURE: 1. Aortic valve replacement with a #23 Magna Bioprosthetic Valve. 2. Coronary artery bypass grafting x2 - one left internal mammary to left anterior descending, reverse saphenous vein to OM. BRIEF DESCRIPTION OF HOSPITAL STAY: Mr. Guajardo was electively admitted for aortic valve replacement and coronary artery bypass grafting. Postoperatively, he did well. He has had no rhythm disturbances. We had some issues with his blood pressure and heart rate in regard to his beta raymond postoperatively. We stopped all of his blood pressure medicine and beta-raymond prior to discharge. He is currently asymptomatic when walking. Follow up includes with me in [address] Massey in a month. DISCHARGE MEDICATIONS: Include; 1. Aspirin 325 mg daily. 2. Allopurinol 100 mg daily. 3. Simvastatin/ezetimibe daily. 4. Levothyroxine 50 mcg daily. Job ID: [id number]
== END 2018-06-16 13:47 | disposition home or self-care (01) | DRG 220 ==
LOC: SURG A 06-09 06:05 → CCU 06-09 11:49 → 2SW 06-11 23:49
PROVIDERS: ADMIT Thoracic Surgery (Cardiothoracic Vascular Surgery); ATTEND Thoracic Surgery (Cardiothoracic Vascular Surgery)
PROC: 02RF08Z Replacement of Aortic Valve with Zooplastic Tissue, Open Approach (ICD-10-PCS; principal; 2018-06-09)
PROC: 02100Z9 Bypass Coronary Artery, One Artery from Left Internal Mammary, Open Approach (ICD-10-PCS; 2018-06-09)
PROC: 0210093 Bypass Coronary Artery, One Artery from Coronary Artery with Autologous Venous Tissue, Open Approach (ICD-10-PCS; 2018-06-09)
PROC: 06BP0ZZ Excision of Right Saphenous Vein, Open Approach (ICD-10-PCS; 2018-06-09)
PROC: 5A1221Z Performance of Cardiac Output, Continuous (ICD-10-PCS; 2018-06-09)
DX: I35.0 Nonrheumatic aortic (valve) stenosis (principal); N17.9 Acute kidney failure, unspecified; I25.10 Atherosclerotic heart disease of native coronary artery without angina pectoris; E78.5 Hyperlipidemia, unspecified; I10 Essential (primary) hypertension; I95.9 Hypotension, unspecified; E87.5 Hyperkalemia; I12.9 Hypertensive chronic kidney disease with stage 1 through stage 4 chronic kidney disease, or unspecified chronic kidney disease; N18.3 Chronic kidney disease, stage 3 (moderate); Z79.899 Other long term (current) drug therapy; Z79.82 Long term (current) use of aspirin
CPT/HCPCS: 36415; 36416; 71045; 80048; 82805; 82947; 85025; 85610; 85730; 86850; 86900; 86901; 93005; 93010; 93798; A4216; J0670; J1100; J1642; J1644; J1815; J1885; J2001; J2150; J2250; J2405; J2440; J2720; J3010; J3370; J3475; J3480; J7050; P9045; P9047; S0017; S0028